=== PATIENT | male | born 1985 | race Asian ===

== ENCOUNTER 2018-01-06 17:16 | Emergency (ER) | payer OTHER ==
[2018-01-06 17:23] VITALS: BP 159/95; PULSE 84; TEMP 98.6; BMI 37.5
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
== END 2018-01-06 17:57 | disposition home or self-care (01) ==
LOC: JERFT 17:16
DX: M54.2 Cervicalgia (principal); V43.52XA Car driver injured in collision with other type car in traffic accident, initial encounter; Y93.89 Activity, other specified; Y92.410 Unspecified street and highway as the place of occurrence of the external cause; F17.210 Nicotine dependence, cigarettes, uncomplicated
CPT/HCPCS: 99281-25

== ENCOUNTER 2018-01-09 15:03 | Emergency (ER) | payer OTHER ==
[2018-01-09 15:19] VITALS: BP 145/89; PULSE 100; TEMP 99.3; BMI 37.5
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
[2018-01-09] MEDS ORDERED: KETOROLAC TROMETHAMINE 30 MG/1 ML VIAL IVPUSH ONE (16:17)
[2018-01-09] MEDS ORDERED: METOCLOPRAMIDE HCL INJECTION 10 MG/2 ML VIAL IVPUSH ONE (16:17)
[2018-01-09] MEDS ORDERED: SODIUM CHLORIDE 1,000 ML IV STA (16:17)
[2018-01-09] MEDS ORDERED: ACETAMINOPHEN 1000 MG/100 ML VIAL (NON FORMULARY) IVPB ONE (16:26)
[2018-01-09] MEDS ORDERED: ACETAMINOPHEN INJECTION 100 ML IVPB ONE (17:08)
[2018-01-09] MEDS ORDERED: METOCLOPRAMIDE HCL INJECTION 10 MG/2 ML VIAL ONE (17:08)
[2018-01-09] MEDS ORDERED: DEXAMETHASONE SOD PHOSPHATE 10 MG/1 ML VIAL IVPUSH ONE (17:27)
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
[2018-01-09] MEDS ORDERED: DEXAMETHASONE SOD PHOSPHATE 10 MG/1 ML VIAL ONE (17:41)
== END 2018-01-09 18:55 | disposition home or self-care (01) ==
LOC: JER 15:03
PROC: 3E033NZ Introduction of Analgesics, Hypnotics, Sedatives into Peripheral Vein, Percutaneous Approach (ICD-10-PCS; principal; 2018-01-09)
PROC: 3E033GC Introduction of Other Therapeutic Substance into Peripheral Vein, Percutaneous Approach (ICD-10-PCS; 2018-01-09)
PROC: 3E0333Z Introduction of Anti-inflammatory into Peripheral Vein, Percutaneous Approach (ICD-10-PCS; 2018-01-09)
PROC: 3E033GC Introduction of Other Therapeutic Substance into Peripheral Vein, Percutaneous Approach (ICD-10-PCS; 2018-01-09)
DX: S16.1XXD Strain of muscle, fascia and tendon at neck level, subsequent encounter (principal); V49.49XD Driver injured in collision with other motor vehicles in traffic accident, subsequent encounter
CPT/HCPCS: 99282-25; J0131; J1100; J7030

== ENCOUNTER 2018-01-11 20:39 | Emergency (ER) | payer OTHER ==
[2018-01-11 20:42] VITALS: BP 123/74; PULSE 84; TEMP 98.7; BMI 37.5
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
== END 2018-01-11 21:05 | disposition home or self-care (01) ==
LOC: JERFT 20:39
DX: S16.1XXD Strain of muscle, fascia and tendon at neck level, subsequent encounter (principal); M62.838 Other muscle spasm; V49.49XD Driver injured in collision with other motor vehicles in traffic accident, subsequent encounter
CPT/HCPCS: 99281-25